=== PATIENT | female | born 1955 | race Caucasian/White ===

== ENCOUNTER 2024-09-17 11:24 | Inpatient (IN) | payer MEDICARE ==
[2024-09-17 11:39] LABS: Glucose,Whole Blood 159 mg/dL (70-110)
--- NOTE | 2024-09-17 11:44 | ED ---
Weakness HPI - General Source: patient, family Mode of arrival: ambulatory Limitations: no limitations <Dewey Álvarez - Last Filed: 09/17/24 11:43> - General Source: patient, family Limitations: no limitations <Darshan Galarza - Last Filed: 09/17/24 14:25> - General Chief complaint: Weakness Stated complaint: weakness Time Seen by Provider: 09/17/24 11:44 - History of Present Illness Initial comments: 68-year-old female presenting with chief complaint of generalized weakness. Patient reports that she recently finished a course of Augmentin for bronchitis. She states that since finishing them she feels worse than she did prior to starting the antibiotics. She admits to nausea and diarrhea as well as shortness of breath. States that she looks pale and is very fatigued. (Dewey Álvarez) Patient is a 68-year-old female present to the emergency department with concerns for being dehydrated. Patient states she finished Augmentin and steroid pack a week ago and has been having symptoms since that time. Decreased appetite. Generalized weakness. Patient has congestion however that has esse ntially resolved. Patient has been having loose stools. Patient did have some diarrhea however more loose stools at this point. Patient has a lot of fatigue. Decreased appetite decreased oral intake. (Darshan Galarza) - Related Data Allergies Allergy/AdvReac Type Severity Reaction Status Date / Time peanut Allergy Rash/Hives Verified 09/17/24 11:40 [id number] Reductase Allergy Rash/Hives Verified 09/17/24 11:40 Inhibitor Sulfa (Sulfonamide Allergy Rash/Hives Verified 09/17/24 11:40 Antibiotics) Review of Systems ROS Other: All systems not noted in ROS Statement are negative. <Dewey Álvarez - Last Filed: 09/17/24 11:43> ROS Other: All systems not noted in ROS Statement are negative. Eyes: Denies: eye pain ENT: Denies: ear pain Respiratory: Reports: as per HPI Cardiovascular: Denies: chest pain Endocrine: Reports: fatigue Gastrointestinal: Reports: as per HPI, nausea. Denies: vomiting Musculoskeletal: Denies: back pain Skin: Denies: rash Neurological: Denies: headache <Darshan Galarza - Last Filed: 09/17/24 14:25> ROS Statement: Those systems with pertinent positive or pertinent negative responses have been documented in the HPI. Past Medical History Past Medical History: Asthma, Diabetes Mellitus, GERD/Reflux, Hyperlipidemia, Hypertension Additional Past Medical History / Comment(s): ibs Additional Past Surgical History / Comment(s): bladder, Smoking Status: Current every day smoker <Dewey Álvarez - Last Filed: 09/17/24 11:43> General Exam Limitations: no limitations <Dewey Álvarez - Last Filed: 09/17/24 11:43> Limitations: no limitations General appearance: alert, in no apparent distress Head exam: Present: normocephalic Eye exam: Present: normal appearance ENT exam: Present: normal oropharynx Neck exam: Present: normal inspection Respiratory exam: Present: normal lung sounds bilaterally. Absent: respiratory distress Cardiovascular Exam: Present: regular rate, normal rhythm GI/Abdominal exam: Present: soft. Absent: tenderness Extremities exam: Present: normal inspection. Absent: pedal edema, calf tenderness Neurological exam: Present: alert Psychiatric exam: Present: normal affect, normal mood Skin exam: Present: normal color <Darshan Galarza - Last Filed: 09/17/24 14:25> - General Exam Comments Initial Comments: Visual Physical Exam Vital signs reviewed General: Well-appearing, nontoxic, no acute distress. Head: Normocephalic, atraumatic Eyes: PERRLA, EOMI ENT: Airway patent Chest: Nonlabored breathing Skin: No visual rash, normal skin tone Neuro: Alert and oriented 3 Musculoskeletal: No gross abnormalities (Dewey Álvarez) Course Vital Signs 09/17/24 11:33 Temperature 97.8 F Pulse Rate 104 H Respiratory 20 Rate Blood Pressure 136/78 O2 Sat by Pulse 99 Oximetry EKG Findings - EKG Results: EKG: interpreted by ERMD (Q wave V1 V2 V3. Inferior Q's. Nonspecific ST-T.), sinus rhythm, normal axis <Darshan Galarza - Last Filed: 09/17/24 14:25> Medical Decision Making <Dewey Álvarez - Last Filed: 09/17/24 11:43> - Lab Data Result diagrams: 09/17/24 13:02 09/17/24 13:02 <Darshan Galarza - Last Filed: 09/17/24 14:25> - Medical Decision Making I performed the quick note portion of this visit, electronically signed Dewey Álvarez PA-C (Dewey Álvarez) Was pt. sent in by a medical professional or institution (, [facility], [facility], urgent care, hospital, or fci...) When possible be specific @ -No Did you speak to anyone other than the patient for history (EMS, parent, family, police, friend...)? What history was obtained from this source @ -Daughter is present helps provide history including previous medications and symptoms and duration Did you review nursing and triage notes (agree or disagree)? Why? @ -I reviewed and agree with nursing and triage notes Were old charts reviewed (outside hosp., previous admission, EMS record, old EKG, old radiological studies, urgent care reports/EKG's, fci records)? Report findings @ -No old charts were reviewed Differential Diagnosis (chest pain, altered mental status, abdominal pain women, abdominal pain men, vaginal bleeding, weakness, fever, dyspnea, syncope, headache, dizziness, GI bleed, back pain, seizure, CVA, palpatations, mental health, musculoskeletal)? @ -Differential Weakness: Hypoglycemia, shock, sepsis, hyponatremia, anemia, infection, NJ, ETOH, adverse medicine reaction, overdose, stroke, this is not meant to be an all-inclusive list. EKG interpreted by me (3pts min.). @ -As above X-rays interpreted by me (1pt min.). @ -Chest x-ray does show left greater than right effusion and mild interstitial changes/cephalization concerning for mild CHF CT interpreted by me (1pt min.). @ -None done U/S interpreted by me (1pt. min.). @ -None done What testing was considered but not performed or refused? (CT, X-rays, U/S, labs)? Why? @ -None What meds were considered but not given or refused? Why? @ -None Did you discuss the management of the patient with other professionals (professionals i.e. [facility]BARA Jimenez, [facility], lab, RT, psych nurse, social science manager, medical parasitologist, teacher, community arts officer, case assistant)? Give summary @ -Case was discussed with Dr. River who will admit his patient. Was smoking cessation discussed for >3mins.? @ -No Was critical care preformed (if so, how long)? @ -31 minutes critical care time Were there social determinants of health that impacted care today? How? (Homelessness, low income, unemployed, alcoholism, drug addiction, transportation, low edu. Level, literacy, decrease access to med. care, alf, rehab)? @ -No Was there de-escalation of care discussed even if they declined (Discuss DNR or withdrawal of care, Hospice)? DNR status @ -No What co-morbidities impacted this encounter? (DM, HTN, Smoking, COPD, CAD, Cancer, CVA, ARF, Chemo, Hep., AIDS, mental health diagnosis, sleep apnea, morbid obesity)? @ -None Was patient admitted / discharged? Hospital course, mention meds given and route, prescriptions, significant lab abnormalities, going to OR and other pertinent info. @ -Patient presents with recent upper respiratory and GI symptoms. Prolonged m ultiple other symptoms. Evaluation with elevated troponin and possible CHF and chest x-ray. There is concern for possible viral myocarditis however NJ has not been ruled out at this time. Patient will be admitted with cardiac consult. Patient and family reevaluated and updated. Admission orders written. Heparin will be started Undiagnosed new problem with uncertain prognosis? @ -No Drug Therapy requiring intensive monitoring for toxicity (Heparin, Nitro, Insulin, Cardizem)? @ -No Were any procedures done? @ -No Diagnosis/symptom? @ -nstemi Acute, or Chronic, or Acute on Chronic? @ -Acute Uncomplicated (without systemic symptoms) or Complicated (systemic symptoms)? @ -Default Side effects of treatment? @ -No Exacerbation, Progression, or Severe Exacerbation? @ -No Poses a threat to life or bodily function? How? (Chest pain, USA, NJ, pneumonia, PE, COPD, DKA, ARF, appy, cholecystitis, CVA, Diverticulitis, Homicidal, Suicidal, threat to staff... and all critical care pts) @ -Threat to cardiac function (Darshan Galarza) - Lab Data Lab Results 09/17/24 09/17/24 09/17/24 Range/Units 11:37 13:02 13:02 WBC 9.2 (3.8-10.6) k/uL RBC 4.32 (3.80-5.40) m/uL Hgb 11.8 (11.4-16.0) gm/dL Hct 37.4 (34.0-46.0) % MCV 86.7 (80.0-100.0) fL MCH 27.4 (25.0-35.0) pg MCHC 31.6 (31.0-37.0) g/dL RDW 14.4 (11.5-15.5) % Plt Count 331 (150-450) k/uL MPV 7.3 Neutrophils % 71 % Lymphocytes % 21 % Monocytes % 5 % Eosinophils % 2 % Basophils % 0 % Neutrophils # 6.6 (1.3-7.7) k/uL Lymphocytes # 2.0 (1.0-4.8) k/uL Monocytes # 0.4 (0-1.0) k/uL Eosinophils # 0.1 (0-0.7) k/uL Basophils # 0.0 (0-0.2) k/uL PT 11.7 (10.0-12.5) sec INR 1.1 (<1.2) APTT 22.9 (22.0-30.0) sec Sodium (137-145) mmol/L Potassium (3.5-5.1) mmol/L Chloride (98-107) mmol/L Carbon Dioxide (22-30) mmol/L Anion Gap mmol/L BUN (7-17) mg/dL Creatinine (0.52-1.04) mg/dL Est GFR (CKD-EPI)AfAm (>60 ml/min/1.73 sqM) Est GFR (CKD-EPI)NonAf (>60 ml/min/1.73 sqM) Glucose (74-99) mg/dL POC Glucose (mg/dL) 159 H (70-110) mg/dL POC Glu [employer] ID [place] Plasma Lactic Acid Alfa (0.7-2.0) mmol/L Calcium (8.4-10.2) mg/dL Magnesium (1.6-2.3) mg/dL Total Bilirubin (0.2-1.3) mg/dL AST (14-36) U/L ALT (4-34) U/L Alkaline Phosphatase (38-126) U/L Troponin I (0.000-0.034) ng/mL Total Protein (6.3-8.2) g/dL Albumin (3.5-5.0) g/dL Influenza Type A (PCR) (Not Detectd) Influenza Type B (PCR) (Not Detectd) RSV (PCR) (Not Detectd) SARS-CoV-2 (PCR) (Not Detectd) 09/17/24 09/17/24 09/17/24 Range/Units 13:02 13:02 13:02 WBC (3.8-10.6) k/uL RBC (3.80-5.40) m/uL Hgb (11.4-16.0) gm/dL Hct (34.0-46.0) % MCV (80.0-100.0) fL MCH (25.0-35.0) pg MCHC (31.0-37.0) g/dL RDW (11.5-15.5) % Plt Count (150-450) k/uL MPV Neutrophils % % Lymphocytes % % Monocytes % % Eosinophils % % Basophils % % Neutrophils # (1.3-7.7) k/uL Lymphocytes # (1.0-4.8) k/uL Monocytes # (0-1.0) k/uL Eosinophils # (0-0.7) k/uL Basophils # (0-0.2) k/uL PT (10.0-12.5) sec INR (<1.2) APTT (22.0-30.0) sec Sodium 138 (137-145) mmol/L Potassium 3.7 (3.5-5.1) mmol/L Chloride 107 (98-107) mmol/L Carbon Dioxide 22 (22-30) mmol/L Anion Gap 9 mmol/L BUN 12 (7-17) mg/dL Creatinine 0.88 (0.52-1.04) mg/dL Est GFR (CKD-EPI)AfAm 78 (>60 ml/min/1.73 sqM) Est GFR (CKD-EPI)NonAf 68 (>60 ml/min/1.73 sqM) Glucose 104 H (74-99) mg/dL POC Glucose (mg/dL) (70-110) mg/dL POC Glu [employer] ID Plasma Lactic Acid Alfa 2.4 H* (0.7-2.0) mmol/L Calcium 9.0 (8.4-10.2) mg/dL Magnesium 1.5 L (1.6-2.3) mg/dL Total Bilirubin 0.6 (0.2-1.3) mg/dL AST 18 (14-36) U/L ALT 25 (4-34) U/L Alkaline Phosphatase 84 (38-126) U/L Troponin I 0.233 H* (0.000-0.034) ng/mL Total Protein 6.0 L (6.3-8.2) g/dL Albumin 3.3 L (3.5-5.0) g/dL Influenza Type A (PCR) (Not Detectd) Influenza Type B (PCR) (Not Detectd) RSV (PCR) (Not Detectd) SARS-CoV-2 (PCR) (Not Detectd) 09/17/24 Range/Units 13:02 WBC (3.8-10.6) k/uL RBC (3.80-5.40) m/uL Hgb (11.4-16.0) gm/dL Hct (34.0-46.0) % MCV (80.0-100.0) fL MCH (25.0-35.0) pg MCHC (31.0-37.0) g/dL RDW (11.5-15.5) % Plt Count (150-450) k/uL MPV Neutrophils % % Lymphocytes % % Monocytes % % Eosinophils % % Basophils % % Neutrophils # (1.3-7.7) k/uL Lymphocytes # (1.0-4.8) k/uL Monocytes # (0-1.0) k/uL Eosinophils # (0-0.7) k/uL Basophils # (0-0.2) k/uL PT (10.0-12.5) sec INR (<1.2) APTT (22.0-30.0) sec Sodium (137-145) mmol/L Potassium (3.5-5.1) mmol/L Chloride (98-107) mmol/L Carbon Dioxide (22-30) mmol/L Anion Gap mmol/L BUN (7-17) mg/dL Creatinine (0.52-1.04) mg/dL Est GFR (CKD-EPI)AfAm (>60 ml/min/1.73 sqM) Est GFR (CKD-EPI)NonAf (>60 ml/min/1.73 sqM) Glucose (74-99) mg/dL POC Glucose (mg/dL) (70-110) mg/dL POC Glu [employer] ID Plasma Lactic Acid Alfa (0.7-2.0) mmol/L Calcium (8.4-10.2) mg/dL Magnesium (1.6-2.3) mg/dL Total Bilirubin (0.2-1.3) mg/dL AST (14-36) U/L ALT (4-34) U/L Alkaline Phosphatase (38-126) U/L Troponin I (0.000-0.034) ng/mL Total Protein (6.3-8.2) g/dL Albumin (3.5-5.0) g/dL Influenza Type A (PCR) Not Detected (Not Detectd) Influenza Type B (PCR) Not Detected (Not Detectd) RSV (PCR) Not Detected (Not Detectd) SARS-CoV-2 (PCR) Not Detected (Not Detectd) Disposition <Dewey Álvarez - Last Filed: 09/17/24 11:43> Is patient prescribed a controlled substance at d/c from ED?: No Time of Disposition: 14:25 <Darshan Galarza - Last Filed: 09/17/24 14:25> Clinical Impression: NSTEMI (non-ST elevated myocardial infarction) Disposition: ADMITTED IP TO THIS HOSP Condition: Serious Referrals: David River MD [Primary Care Provider] - 1-2 days
[2024-09-17 13:11] LABS: Basophils % (A) 0 %; Eosinophils # (A) 0.1 k/uL (0-0.7); Eosinophils % (A) 2 %; HCT 37.4 % (34.0-46.0); HGB 11.8 gm/dL (11.4-16.0); Lymphocytes % (A) 21 %; MCH 27.4 pg (25.0-35.0); MCHC 31.6 g/dL (31.0-37.0); MCV 86.7 fL (80.0-100.0); Mean Platelet Volume 7.3; Monocytes # (A) 0.4 k/uL (0-1.0); Monocytes % (A) 5 %; Neutrophils # (A) 6.6 k/uL (1.3-7.7); Neutrophils % (A) 71 %; Platelet Count 331 k/uL (150-450); RBC 4.32 m/uL (3.80-5.40); RDW 14.4 % (11.5-15.5); WBC 9.2 k/uL (3.8-10.6)
[2024-09-17 13:21] LABS: INR 1.1 (<1.2); Partial Thromboplastin Time 22.9 sec (22.0-30.0); Prothrombin Time 11.7 sec (10.0-12.5)
[2024-09-17 13:26] LABS: ALT 25 U/L (4-34); AST 18 U/L (14-36); African American GFR (CKD) 78 (>60 ml/min/1.73 sqM); Albumin 3.3 g/dL (3.5-5.0); Alkaline Phosphatase 84 U/L (38-126); Anion Gap 9 mmol/L; Blood Urea Nitrogen 12 mg/dL (7-17); Carbon Dioxide 22 mmol/L (22-30); Chloride 107 mmol/L (98-107); Glucose 104 mg/dL (74-99); Magnesium 1.5 mg/dL (1.6-2.3); Non-African American GFR(CKD) 68 (>60 ml/min/1.73 sqM); Potassium 3.7 mmol/L (3.5-5.1); Sodium 138 mmol/L (137-145); Total Bilirubin 0.6 mg/dL (0.2-1.3)
--- NOTE | 2024-09-17 13:34 | XR ---
EXAMINATION TYPE: XR chest 2V DATE OF EXAM: 09/17/2024 1:30 PM COMPARISON: Chest radiographs from 04/30/2012 TECHNIQUE: XR chest 2V Frontal and lateral views of the chest. CLINICAL INDICATION:Female, 68 years old with history of Weakness; FINDINGS: Incorrectly labeled left. Lungs/Pleura: No evidence of focal consolidation or pneumothorax. Blunting of the costophrenic angles is present. Pulmonary vascularity: Pulmonary vascular congestion. Heart/mediastinum: Cardiomediastinal silhouette is prominent in size. Atherosclerotic calcifications are seen in the aorta. Musculoskeletal: No acute osseous pathology. IMPRESSION: Small bilateral pleural effusions with pulmonary vascular congestion. [facility], , 09/17/2024 1:31 PM
[2024-09-17] MEDS: ONDANSETRON 4 MG/2 ML VIAL IVP STA (13:36)
[2024-09-17] MEDS: SODIUM CHLORIDE 0.9% 1,000 ML IV STA (13:36)
[2024-09-17] MEDS: FAMOTIDINE 20 MG/2 ML VIAL IV STA (13:37)
[2024-09-17 13:47] LABS: Influenza A Not Detected (Not Detectd); Influenza B Not Detected (Not Detectd); RSV Not Detected (Not Detectd)
[2024-09-17] MEDS ORDERED: NITROGLYCERIN SL TABS 0.4 MG TAB SUBLINGUAL PRN (14:26)
[2024-09-17 15:23] LABS: Appearance,Urine Cloudy (Clear); Bilirubin,Urine Negative (Negative); Blood,Urine Trace (Negative); Color,Urine Yellow; Glucose,Urine (UA) Negative (Negative); Ketones,Urine Negative (Negative); Leukocyte Esterase,Urine Trace (Negative); Mucus,Urine Many /hpf; Nitrite,Urine Negative (Negative); PH, Urine 5.5 (5.0-8.0); Protein,Urine 1+ (Negative); RBC,Urine 3 /hpf (0-5); Specific Gravity,Urine 1.025 (1.001-1.035); Squamous Epithelial Cell,Urine 5 /hpf (0-4); WBC,Urine 5 /hpf (0-5)
[2024-09-17] MEDS: HEPARIN SODIUM 1,000 UN/ML (10ML VL) IV ONE (16:01)
[2024-09-17] MEDS: HEPARIN SOD,PORK IN 0.45% NACL 25,000 UNIT in 0.45% NACL 1 250ML.BAG IV SCH (16:02)
[2024-09-17] MEDS: ASPIRIN 81 MG PO STA (16:11)
[2024-09-17] MEDS: LOSARTAN 25 MG TAB PO SCH (22:31)
[2024-09-17] MEDS: HEPARIN SODIUM 1,000 UN/ML (10ML VL) IV PRN (23:49)
[2024-09-18 05:55] LABS: Mean Platelet Volume 7.2; Platelet Count 287 k/uL (150-450)
[2024-09-18] MEDS: METOPROLOL TARTRATE 25 MG TAB PO SCH (09:30)
[2024-09-18] MEDS: PANTOPRAZOLE 40 MG TABLET PO SCH (09:30)
[2024-09-18] MEDS: MONTELUKAST 10 MG TAB PO SCH (09:30)
[2024-09-18] MEDS: VERAPAMIL SR 120 MG TABLET.ER PO SCH (09:30)
--- NOTE | 2024-09-18 09:33 | P.CRDCN ---
History of Present Illness History of present illness: HISTORY OF PRESENT ILLNESS: This is a 68-year-old female with a past medical history significant for hypertension, hyperlipidemia with statin intolerance, diabetes, and asthma. Patient does not follow with a project internship. We have been asked to see the patient in consultation for elevated troponins. Patient examined at the bedside in the emergency room. Patient states about 2 weeks ago she had food poisoning and also an upper respiratory infection. She states that she was seen by her doctor and was placed on antibiotics and steroids. She states initially she thought she was getting better however her symptoms started to get worse. She reports that over the past 2 weeks she has been getting more weak. She states that she is too exhausted to do her normal daily activities. She denies having any cough or fever at home. She denies any chest pain or pressure. DIAGNOSTICS: - EKG reveals sinus mechanism with nonspecific ST-T wave changes. - Chest xray small bilateral pleural effusions with pulmonary vascular congestion - Laboratory data: WBC 9.2. Hemoglobin 11.8. Platelet count 287. Sodium 138. Potassium 3.7. BUN 12. Creatinine 0.88. Troponin 0.233. 0.238. 0.223. proBNP 6910. - Current home cardiac medications include losartan 50 mg at night and verapamil 120 mg daily. - No previous echocardiogram, stress test, or cardiac catheterization available in EMR for review REVIEW OF SYSTEMS: At the time of my exam: CONSTITUTIONAL: Denies fever or chills. HEENT: Denies blurred vision, vision changes, or eye pain. Denies hemoptysis CARDIOVASCULAR: Denies chest pain. Denies orthopnea. Denies PND. Denies palpitations RESPIRATORY: Denies shortness of breath. GASTROINTESTINAL: Denies abdominal pain. Denies nausea or vomiting. HEMATOLOGIC: Denies bleeding disorders. GENITOURINARY: Denies any blood in urine. SKIN: Denies pruitis. Denies rash. PHYSICAL EXAM: VITAL SIGNS: Reviewed. GENERAL: Well-developed in no acute distress. HEENT: Head is normocephalic. Pupils are equal, round. Sclerae anicteric. Mucous membranes of the mouth are moist. Neck supple. No JVD or thyromegaly LUNGS: Respirations even and unlabored. Lungs essentially clear to auscultation bilaterally. HEART: Regular rate and rhythm. S1 and S2 heard. ABDOMEN: Soft. Nondistended. Nontender. EXTREMITIES: Normal range of motion. No clubbing or cyanosis. Peripheral pulses intact. No lower extremity edema NEUROLOGIC: Awake and alert. Oriented x 3. ASSESSMENT: Generalized weakness Recent diagnosis of upper respiratory infection, treated with antibiotics and steroids Elevated troponins, likely type II [place], suspect secondary to above, no evidence of acute coronary syndrome Hypertension Hyperlipidemia with statin intolerance Diabetes History of asthma PLAN: Obtain 2D echo to assess cardiac structure and function Add aspirin 81 mg daily Add metoprolol to tartrate 25 mg twice a day Continue home medications including losartan and verapamil Patient with allergy to statins Continue IV heparin for 24 to 48 hours No plans for invasive cardiac procedures at this time Further recommendations pending patient course Nurse practitioner note has been reviewed by physician. Signing provider agrees with the documented findings, assessment, and plan of care documented by [employer] OPERATOR as a scribe. Past Medical History Past Medical History: Asthma, Diabetes Mellitus, GERD/Reflux, Hyperlipidemia, Hypertension Additional Past Medical History / Comment(s): ibs Additional Past Surgical History / Comment(s): bladder, Smoking Status: Current every day smoker Medications and Allergies Home Medications Medication Instructions Recorded Confirmed Type Albuterol Inhaler [Ventolin Hfa 2 puff INHALATION RT-QID PRN 09/17/24 09/17/24 History Inhaler] HYDROcodone/APAP 10-325MG [[place] 0.5 - 1 tab PO DAILY PRN 09/17/24 09/17/24 History 10-325] Losartan [Cozaar] 50 mg PO HS 09/17/24 09/17/24 History Montelukast [Singulair] 10 mg PO DAILY 09/17/24 09/17/24 History Omeprazole [PriLOSEC] 10 mg PO DAILY 09/17/24 09/17/24 History Verapamil HCl [Verapamil Sr] 120 mg PO DAILY 09/17/24 09/17/24 History metFORMIN HCL 500 mg PO DAILY 09/17/24 09/17/24 History Allergies Allergy/AdvReac Type Severity Reaction Status Date / Time peanut Allergy Rash/Hives Verified 09/17/24 14:47 [id number] Reductase Allergy Rash/Hives Verified 09/17/24 14:47 Inhibitor Sulfa (Sulfonamide Allergy Rash/Hives Verified 09/17/24 14:47 Antibiotics) egg beaters Allergy Vomiting Uncoded 09/18/24 07:49 Physical Exam Vitals: Vital Signs Temp Pulse Resp BP Pulse Ox 09/18/24 07:34 98.6 F 106 H 16 124/81 99 09/18/24 05:16 103 H 18 123/82 09/18/24 03:31 103 H 16 112/47 96 09/18/24 01:12 102 H 16 121/75 94 L 09/17/24 22:00 98 22 105/60 96 09/17/24 21:14 98.5 F 98 20 124/70 95 09/17/24 17:43 98.8 F 96 20 112/72 95 09/17/24 14:30 97 20 123/76 95 09/17/24 11:33 97.8 F 104 H 20 136/78 99 Intake and Output 09/17/24 09/18/24 09/18/24 22:59 06:59 14:59 Intake Total 72.019 Balance 72.019 Intake: Intake, IV Titration 72.019 Amount Heparin Sod,Pork in 0.45% 72.019 NaCl 25,000 unit In 0.45 % NaCl 1 250ml.bag @ 12 UNITS/KG/HR 9.253 mls/hr IV .Q24H [facility] Rx#: [id number] Results 09/18/24 05:31 09/17/24 13:02 Cardiac Enzymes 09/17/24 09/17/24 09/17/24 Range/Units 13:02 13:02 16:25 AST 18 (14-36) U/L Troponin I 0.233 H* 0.238 H* (0.000-0.034) ng/mL 09/17/24 Range/Units 22:06 AST (14-36) U/L Troponin I 0.223 H* (0.000-0.034) ng/mL Coagulation 09/17/24 09/17/24 09/18/24 Range/Units 13:02 22:06 05:31 PT 11.7 (10.0-12.5) sec APTT 22.9 33.8 H 40.1 H (22.0-30.0) sec CBC 09/17/24 09/18/24 Range/Units 13:02 05:31 WBC 9.2 (3.8-10.6) k/uL RBC 4.32 (3.80-5.40) m/uL Hgb 11.8 (11.4-16.0) gm/dL Hct 37.4 (34.0-46.0) % Plt Count 331 287 (150-450) k/uL Comprehensive Metabolic Panel 09/17/24 Range/Units 13:02 Sodium 138 (137-145) mmol/L Potassium 3.7 (3.5-5.1) mmol/L Chloride 107 (98-107) mmol/L Carbon Dioxide 22 (22-30) mmol/L BUN 12 (7-17) mg/dL Creatinine 0.88 (0.52-1.04) mg/dL Glucose 104 H (74-99) mg/dL Calcium 9.0 (8.4-10.2) mg/dL AST 18 (14-36) U/L ALT 25 (4-34) U/L Alkaline Phosphatase 84 (38-126) U/L Total Protein 6.0 L (6.3-8.2) g/dL Albumin 3.3 L (3.5-5.0) g/dL Current Medications Generic Name Dose Route Start Last Admin Trade Name Freq PRN Reason Stop Dose Admin Albuterol Sulfate 2 puff 09/17/24 15:27 Albuterol Hfa Inhaler INHALATION RT-QID PRN Shortness Of Breath Aspirin 325 mg 09/18/24 09:00 Aspirin 325 Mg Tab PO DAILY [facility] Heparin Sodium (Porcine) 0 unit 09/17/24 23:40 09/17/24 23:49 Heparin Sodium 1,000 Un/Ml (10ml Vl) IV 1,927.77 unit PER PROTOCOL PRN Administration Low PTT Protocol Heparin Sodium/Sodium Chloride 250 mls @ 9.253 mls/hr 09/17/24 14:30 09/17/24 23:49 25,000 unit/ Sodium Chloride IV 14 units/kg/hr .Q24H NOE 10.796 mls/hr Titration Protocol 12 UNITS/KG/HR Losartan Potassium 50 mg 09/17/24 21:00 09/17/24 22:31 Losartan 25 Mg Tab PO Not Given HS NOE Montelukast Sodium 10 mg 09/18/24 09:00 Montelukast 10 Mg Tab PO DAILY NOE Nitroglycerin 0.4 mg 09/17/24 14:26 Nitroglycerin Sl Tabs 0.4 Mg Tab SUBLINGUAL Q5M PRN Chest Pain Pantoprazole Sodium 40 mg 09/18/24 09:00 Pantoprazole 40 Mg Tablet PO DAILY NOE Verapamil HCl 120 mg 09/18/24 09:00 Verapamil Sr 120 Mg Tablet.Er PO DAILY NOE Intake and Output 09/17/24 09/18/24 09/18/24 22:59 06:59 14:59 Intake Total 72.019 Balance 72.019 Intake: Intake, IV Titration 72.019 Amount Heparin Sod,Pork in 0.45% 72.019 NaCl 25,000 unit In 0.45 % NaCl 1 250ml.bag @ 12 UNITS/KG/HR 9.253 mls/hr IV .Q24H NOE Rx#: [id number] 09/18/24 05:31 09/17/24 13:02
[2024-09-18 09:35] LABS: Chol/HDL Ratio 5.89 Ratio; LDL Cholesterol,Calculated 125.8 mg/dL (0.0-131.0)
[2024-09-18] MEDS: ASPIRIN 325 MG TAB PO SCH (10:20)
[2024-09-18] MEDS: ASPIRIN 81 MG PO SCH (10:49)
--- NOTE | 2024-09-18 20:44 | HP ---
HISTORY AND PHYSICAL CHIEF COMPLAINT: Chest discomfort. HISTORY OF PRESENT ILLNESS: This is a first known admission for this 68-year-old female. She described thinking she had food poisoning. She felt very weak and then, she thought she had "cold." She did develop some chest discomfort and vomiting, came to the emergency room. There, she had elevated troponin and ST-segment and T-wave changes in leads III and aVF. REVIEW OF SYSTEMS: She denied radiation of the discomfort, diaphoresis, etc. She had no vomiting. PAST MEDICAL HISTORY: Otherwise, unremarkable. FAMILY HISTORY: Otherwise, unremarkable. PERSONAL AND SOCIAL HISTORY: Otherwise, unremarkable. PHYSICAL EXAMINATION: VITAL SIGNS: Blood pressure is 110/75 with a pulse of 78, respirations of 33. GENERAL: She appeared to be pale and in no acute distress. HEAD, EARS, EYES, NOSE, MOUTH, AND THROAT: Normal. CHEST: Clear. CARDIAC EXAM: Demonstrated a loud grade 3 or 4 systolic murmur. ABDOMEN: Soft and nontender. EXTREMITIES: Normal. NEUROLOGIC: She is intact. ASSESSMENT: She is admitted to the hospital with the diagnosis of probable [id number] myocardial infarction. PLAN: 1. Bedrest. 2. IV fluids. 3. Heparin. 4. Serial EKGs and enzymes. 5. Echocardiogram. 6. Cardiology referral. MMODL / IJN: [id number] /
--- NOTE | 2024-09-18 21:59 | PN ---
PROGRESS NOTE DATE OF SERVICE: 09/18/2024 CHIEF COMPLAINT: Acute coronary syndrome. HISTORY OF PRESENT ILLNESS: This lady is doing fairly well. She is not having any pain, but she is quite lightheaded. PHYSICAL EXAMINATION: VITAL SIGNS: Blood pressure is 99. GENERAL: She is pale. CHEST: Clear. CARDIAC: Same. IMPRESSION: 1. Possible type 2 ST-elevation myocardial infarction. 2. Hypotension. PLAN: She is undergoing an echocardiogram tomorrow and may require catheterization subsequently. MMODL / IJN: [id number] /
[2024-09-19 05:02] LABS: Mean Platelet Volume 7.3; Platelet Count 291 k/uL (150-450)
--- NOTE | 2024-09-19 11:08 | P.PN ---
Subjective HISTORY OF PRESENT ILLNESS: This is a 68-year-old female with a past medical history significant for hypertension, hyperlipidemia with statin intolerance, diabetes, and asthma. Patient does not follow with a material control clerk. We have been asked to see the patient in consultation for elevated troponins. Patient examined at the bedside in the emergency room. Patient states about 2 weeks ago she had food poisoning and also an upper respiratory infection. She states that she was seen by her doctor and was placed on antibiotics and steroids. She states initially she thought she was getting better however her symptoms started to get worse. She reports that over the past 2 weeks she has been getting more weak. She states that she is too exhausted to do her normal daily activities. She denies having any cough or fever at home. She denies any chest pain or pressure. DIAGNOSTICS: - EKG reveals sinus mechanism with nonspecific ST-T wave changes. - Chest xray small bilateral pleural effusions with pulmonary vascular congestion - Laboratory data: WBC 9.2. Hemoglobin 11.8. Platelet count 287. Sodium 138. Potassium 3.7. BUN 12. Creatinine 0.88. Troponin 0.233. 0.238. 0.223. proBNP 6910. - Current home cardiac medications include losartan 50 mg at night and verapamil 120 mg daily. - No previous echocardiogram, stress test, or cardiac catheterization available in EMR for review 09/19/2024 Patient examined this morning the bedside. Patient currently denies any chest pain or pressure. She denies any shortness of breath. According to EMR, patient refused all her morning medications. 2D echo remains pending. Vital signs are stable. She remains on IV heparin. PHYSICAL EXAM: VITAL SIGNS: Reviewed. GENERAL: Well-developed in no acute distress. HEENT: Head is normocephalic. Pupils are equal, round. Sclerae anicteric. Mucous membranes of the mouth are moist. Neck supple. No JVD or thyromegaly LUNGS: Respirations even and unlabored. Lungs essentially clear to auscultation bilaterally. HEART: Regular rate and rhythm. S1 and S2 heard. ABDOMEN: Soft. Nondistended. Nontender. EXTREMITIES: Normal range of motion. No clubbing or cyanosis. Peripheral pulses intact. No lower extremity edema NEUROLOGIC: Awake and alert. Oriented x 3. ASSESSMENT: Generalized weakness Recent diagnosis of upper respiratory infection, treated with antibiotics and steroids Elevated troponins, likely type II [place], suspect secondary to above, no evidence of acute coronary syndrome Hypertension Hyperlipidemia with statin intolerance Diabetes History of asthma PLAN: 2D echo remains pending. Await results. Continue IV heparin Patient with allergy to statins Per EMR, patient refused all her morning medications including aspirin, losartan, metoprolol, and verapamil No plans for invasive cardiac procedures at this time Further recommendations pending patient course Nurse practitioner note has been reviewed by physician. Signing provider agrees with the documented findings, assessment, and plan of care documented by ACCOUNTS RECEIVABLE SPECIALIST as a scribe. Objective - Vital Signs Vital signs: Vital Signs Temp 98.5 F 09/18/24 18:07 Pulse 111 H 09/19/24 08:00 Resp 22 09/19/24 08:00 BP 128/78 09/19/24 08:00 Pulse Ox 94 L 09/19/24 08:00 FiO2 Intake & Output 09/18/24 09/19/24 09/19/24 18:59 06:59 18:59 Intake Total 149.525 93.563 Balance 149.525 93.563 Intake: Intake, IV Titration 149.525 93.563 Amount Heparin Sod,Pork in 0.45% 149.525 93.563 NaCl 25,000 unit In 0.45 % NaCl 1 250ml.bag @ 12 UNITS/KG/HR 9.253 mls/hr IV .Q24H [facility] Rx#: [id number] Other: # Voids 1 - Labs CBC & Chem 7: 09/19/24 04:48 09/17/24 13:02 Labs: Abnormal Lab Results - Last 24 Hours (Table) 09/18/24 09/18/24 09/19/24 Range/Units 11:05 20:32 04:48 APTT 37.7 H 47.1 H 44.6 H (22.0-30.0) sec
[2024-09-19] MEDS: ALBUTEROL HFA INHALER INHALATION PRN (17:20)
[2024-09-19 18:52] LABS: Glucose,Whole Blood 112 mg/dL (70-110)
[2024-09-19 20:09] LABS: Glucose,Whole Blood 100 mg/dL (70-110)
--- NOTE | 2024-09-20 01:08 | PN ---
PROGRESS NOTE DATE OF SERVICE: 09/19/2024 CHIEF COMPLAINT: Chest pain. HISTORY OF PRESENT ILLNESS: This lady is doing a little bit better. She is not having any further chest pain. Her x-ray apparently shows small bilateral effusions and her BNP is 6910. PHYSICAL EXAMINATION: CHEST: She does have some decreased breath sounds at the bases and scattered rales. CARDIAC EXAM: Normal. IMPRESSION: 1. Acute coronary syndrome. 2. Congestive heart failure. 3. Bilateral pleural effusions. PLAN: Await for further guidance from Cardiology. She may still be a candidate for cardiac cath. MMODL / IJN: [id number] /
[2024-09-20 06:02] LABS: Glucose,Whole Blood 113 mg/dL (70-110)
[2024-09-20 08:09] LABS: Mean Platelet Volume 7.7; Platelet Count 307 k/uL (150-450)
[2024-09-20] MEDS ORDERED: Magnesium Replacement Protocol 1 EACH MISC MISCELLANE PRN (09:43)
[2024-09-20] MEDS: MONTELUKAST 10 MG TAB PO SCH (09:45)
[2024-09-20] MEDS: VERAPAMIL SR 120 MG TABLET.ER PO SCH (09:52)
[2024-09-20] MEDS: MAGNESIUM SULFATE-D5W PMX 1 GM in DEXTROSE/WATER 1 100ML.BAG IVPB SCH (09:54)
--- NOTE | 2024-09-20 10:12 | CA ---
Transthoracic Echo Report Name: Ludy Blanc Age: 68 Gender: F : 1955 Exam Date: 09/20/2024 08:53 Exam Location: [place] [facility] Ht (in): 66 Wt (lb): 170 Ordering Physician: Darshan Galarza DO Attending/Referring Phys: Tar Heat Exchanger Cleaner Leatha Obrien RDCS Procedure CPT: Indications: nstemi v myocarditis Cardiac Hx: Technical Quality: Fair Contrast 1: Total Dose (mL): Contrast 2: Total Dose (mL): MEASUREMENTS (Male / Female) Normal Values 2D ECHO LV Diastolic Diameter PLAX 5.2 cm 4.2 - 5.9 / 3.9 - 5.3 cm LV Systolic Diameter PLAX 3.2 cm IVS Diastolic Thickness 1.1 cm 0.6 - 1.0 / 0.6 - 0.9 cm LVPW Diastolic Thickness 1.0 cm 0.6 - 1.0 / 0.6 - 0.9 cm LV Relative Wall Thickness 0.4 RV Internal Dim ED PLAX 1.4 cm LA Systolic Diameter LX 3.8 cm 3.0 - 4.0 / 2.7 - 3.8 cm LV Diastolic Volume MOD BP 74.3 cm??? 67 - 155 / 56 - 104 cm??? LV Systolic Volume MOD BP 35.7 cm??? 22 - 58 / 19 - 49 cm??? LV Ejection Fraction MOD BP 51.9 % >= 55 % LV Cardiac Index MOD BP 2197.4 cm???/min???m??? LV Diastolic Volume MOD 4C 78.7 cm??? LV Systolic Volume MOD 4C 26.1 cm??? LV Ejection Fraction MOD 4C 66.8 % LV Cardiac Index MOD 4C 2997.2 cm???/min???m??? LV Diastolic Length 4C 7.7 cm LV Systolic Length 4C 5.9 cm LV Diastolic Volume MOD 2C 61.3 cm??? LV Systolic Volume MOD 2C 47.7 cm??? LV Ejection Fraction MOD 2C 22.1 % LV Cardiac Index MOD 2C 772.9 cm???/min???m??? LV Diastolic Length 2C 6.7 cm LV Systolic Length 2C 6.2 cm M-MODE Aortic Root Diameter MM 3.4 cm LA Systolic Diameter MM 3.8 cm LA Ao Ratio MM 1.1 AV Cusp Separation MM 2.0 cm DOPPLER Mitral E Point Velocity 170.3 cm/s Mitral A Point Velocity 160.7 cm/s Mitral E to A Ratio 1.1 MV Deceleration Time 264.1 ms MV E' Velocity 6.1 cm/s Mitral E to MV E' Ratio 27.9 TR Peak Velocity 333.6 cm/s TR Peak Gradient 44.5 mmHg FINDINGS Left Ventricle Left ventricular ejection fraction is estimated at 45-50%. Mildly increased septal wall thickness. Mildly increased posterior wall thickness. Mildly decreased left ventricular ejection fraction. Thinned/scarred septum. Aneurysmal inferior wall at the base. Ventricular septal defect. With flow across best seen in the angled four-chamber view Right Ventricle Normal right ventricular size and function. Moderate pulmonary hypertension. Right Atrium Mild right atrial dilatation. Left Atrium Mild left atrial dilatation. Mitral Valve Structurally normal mitral valve. Mild mitral regurgitation. No mitral stenosis. Aortic Valve Trileaflet aortic valve. Trace aortic regurgitation. No aortic stenosis. Tricuspid Valve Structurally normal tricuspid valve. Mild tricuspid regurgitation. No tricuspid stenosis. Pulmonic Valve Structurally normal pulmonic valve. Trace pulmonic regurgitation. Pericardium Right pleural effusion. Left pleural effusion. Small pericardial effusion. Aorta Normal size aortic root and proximal ascending aorta. CONCLUSIONS LV size and function is normal inferobasal akinesia to dyskinesia with ventricular septal defect. Moderate pulmonary hypertension. Mild mitral and tricuspid regurgitation small pericardial effusion and bilateral pleural effusions. Findings discussed with Dr. Delgado Previewed by: Dr. Cadence Mary MD (Electronically Signed) Final Date: 20 September 2024 10:11
[2024-09-20] MEDS: ATORVASTATIN 20 MG TAB PO SCH (11:23)
--- NOTE | 2024-09-20 11:24 | P.PN ---
Progress Note - Text Patient evaluated this morning. 2D echo was performed since she had been complaining of shortness of breath for the last several weeks, had been treated for a bronchitis with antibiotics and steroids by her primary care physician Dr. Bryan. Twelve-lead EKG showed Q waves in the inferior leads with a subtle ST elevation coved consistent with an old CA Her troponins are 0.2, 0.2 and 0.2, flat trend She was initially seen by Dr. Donovan. I evaluated her yesterday. She had a cardiac murmur and a 2D echo was ordered Her 2D echo was reviewed with Dr. 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 Her blood pressure was low and her daughter asked her mother to to be taken to the hospital but the patient refused Patient has been refusing medications. She has been refusing aspirin and statins. She was on IV heparin which is being discontinued today Plan Initiate aspirin statins beta-blockers per daughter. I discussed this with the daughter in detail. I explained to her that she has had an old inferior wall CA that is certainly not new. The inferior basal wall appears aneurysmal consis tent with an old CA. She needs to be transferred to a tertiary care center for further management. While this is neither emergent nor urgent, this should be addressed in an expeditious manner. The daughter is in agreement. I called Dr. Oseguera's office multiple times. I could not get through via the direct line and kept getting cut off I called the regular line. Finally my nurse practitioner was able to speak to the office coordinator receptionist but she was put on hold I called again and insisted that I speak to Dr. Hodgson. I stated that this was an urgent matter and I needed to speak to Dr. Bryan regarding his patient who is in the hospital. The office coordinator receptionist took notes transferred a message and then said she was transferred me to Dr. Wynn's office and once again, I was given a voicemail to leave a message on. I have left 2 voice messages with his office Recommend transfer to a tertiary care center for further evaluation and management of coronary artery disease, old inferior wall CA with VSD I spoke to the medical records technician, Dr. Hsu about this too and recommended that the patient be transferred by the primary team to a tertiary care center
[2024-09-20 11:37] LABS: Glucose,Whole Blood 145 mg/dL (70-110)
--- NOTE | 2024-09-20 12:13 | P.PN ---
Subjective HISTORY OF PRESENT ILLNESS: This is a 68-year-old female with a past medical history significant for hypertension, hyperlipidemia with statin intolerance, diabetes, and asthma. Patient does not follow with a physiological chemist. We have been asked to see the patient in consultation for elevated troponins. Patient examined at the bedside in the emergency room. Patient states about 2 weeks ago she had food poisoning and also an upper respiratory infection. She states that she was seen by her doctor and was placed on antibiotics and steroids. She states initially she thought she was getting better however her symptoms started to get worse. She reports that over the past 2 weeks she has been getting more weak. She states that she is too exhausted to do her normal daily activities. She denies having any cough or fever at home. She denies any chest pain or pressure. DIAGNOSTICS: - EKG reveals sinus mechanism with nonspecific ST-T wave changes. - Chest xray small bilateral pleural effusions with pulmonary vascular congestion - Laboratory data: WBC 9.2. Hemoglobin 11.8. Platelet count 287. Sodium 138. Potassium 3.7. BUN 12. Creatinine 0.88. Troponin 0.233. 0.238. 0.223. proBNP 6910. - Current home cardiac medications include losartan 50 mg at night and verapamil 120 mg daily. - No previous echocardiogram, stress test, or cardiac catheterization available in EMR for review 09/19/2024 Patient examined this morning the bedside. Patient currently denies any chest pain or pressure. She denies any shortness of breath. According to EMR, patient refused all her morning medications. 2D echo remains pending. Vital signs are stable. She remains on IV heparin. 09/20/2024 Patient examined this morning at the bedside. There is no family present. Patient currently denies chest pain or pressure. She denies shortness of breath. Patient continues to refuse all of her oral medications. Explained the importance of these medications to patient. However she continues to refuse them. Patient is adamant that she was given IV metoprolol yesterday through her IV. Explained to patient this was ordered orally yet she refused it. Explained that IV metoprolol was not ordered and patient did not receive it. Patient becoming agitated and stated that she knows she was given IV metoprolol. Tried to reassure patient that IV metoprolol was not ordered or given. However, unable unwilling to listen and continues to accuse staff and providers of giving her medications through her IV. PHYSICAL EXAM: VITAL SIGNS: Reviewed. GENERAL: Well-developed in no acute distress. HEENT: Head is normocephalic. Pupils are equal, round. Sclerae anicteric. Mucous membranes of the mouth are moist. Neck supple. No JVD or thyromegaly LUNGS: Respirations even and unlabored. Lungs essentially clear to auscultation bilaterally. HEART: Regular rate and rhythm. S1 and S2 heard. ABDOMEN: Soft. Nondistended. Nontender. EXTREMITIES: Normal range of motion. No clubbing or cyanosis. Peripheral pulses intact. No lower extremity edema NEUROLOGIC: Awake and alert. Oriented x 3. ASSESSMENT: Generalized weakness Recent diagnosis of upper respiratory infection, treated with antibiotics and steroids Elevated troponins, likely type II [place], suspect secondary to above, no evidence of acute coronary syndrome Hypertension Hyperlipidemia with statin intolerance Diabetes History of asthma PLAN: -2D echo remains pending. Await results. -Discontinue IV Heparin. -Patient with reported allergy to statins -Patient continues to refuse all medications including aspirin, losartan, metoprolol, and verapamil -Patient is adamant that she was given IV metoprolol yesterday through her IV. Explained to patient this was ordered orally yet she refused it. Explained that IV metoprolol was not ordered and patient did not receive it. Patient becoming agitated and stated that she knows she was given IV metoprolol. Tried to reassure patient that IV metoprolol was not ordered or given. However, unable unwilling to listen and continues to accuse staff and providers of giving her medications through her IV. -No plans for invasive cardiac procedures at this time -Further recommendations pending patient course Nurse practitioner note has been reviewed by physician. Signing provider agrees with the documented findings, assessment, and plan of care documented by WEBMETHODS CONSULTANT as a scribe. Objective - Vital Signs Vital signs: Vital Signs Temp 98.0 F 09/20/24 11:21 Pulse 93 09/20/24 11:21 Resp 20 09/20/24 11:21 BP 95/65 09/20/24 11:21 Pulse Ox 97 09/20/24 11:21 FiO2 Intake & Output 09/19/24 09/20/24 09/20/24 18:59 06:59 18:59 Intake Total 156.437 120 118 Balance 156.437 120 118 Weight 77.111 kg 85 kg Intake: Intake, IV Titration 156.437 Amount Heparin Sod,Pork in 0.45% 156.437 NaCl 25,000 unit In 0.45 % NaCl 1 250ml.bag @ 12 UNITS/KG/HR 9.253 mls/hr IV .Q24H [facility] Rx#: [id number] Oral 120 118 Other: Voiding Method Toilet # Voids 1 # Bowel Movements 1 - Labs CBC & Chem 7: 09/20/24 06:27 09/17/24 13:02 Labs: Abnormal Lab Results - Last 24 Hours (Table) 09/19/24 09/20/24 09/20/24 Range/Units 18:50 06:00 06:27 APTT 36.5 H (22.0-30.0) sec POC Glucose (mg/dL) 112 H 113 H (70-110) mg/dL Magnesium (1.6-2.3) mg/dL 09/20/24 09/20/24 Range/Units 06:27 11:35 APTT (22.0-30.0) sec POC Glucose (mg/dL) 145 H (70-110) mg/dL Magnesium 1.5 L (1.6-2.3) mg/dL
[2024-09-20] MEDS: HEPARIN SODIUM,PORCINE 5,000 UNIT/ML 1 ML VIAL SQ SCH (15:13)
[2024-09-20 15:29] VITALS: BMI 30.2
[2024-09-20] MEDS: ALPRAZolam 0.25 MG TAB PO PRN (15:48)
[2024-09-20 16:37] LABS: Glucose,Whole Blood 119 mg/dL (70-110)
[2024-09-20 19:56] LABS: Glucose,Whole Blood 135 mg/dL (70-110)
[2024-09-20] MEDS: LOSARTAN 25 MG TAB PO SCH (19:59)
--- NOTE | 2024-09-20 21:52 | PN ---
PROGRESS NOTE DATE OF SERVICE: 09/20/2024 CHIEF COMPLAINT: Myocardial infarction. HISTORY OF PRESENT ILLNESS: This lady is doing fairly well, but she still feels weak. She has created some issues with the staff, refusing to take medications and being noncompliant with Cardiology. She had an echocardiogram today with suggests that she may have a VSD. Cardiology requests that she will be transferred out of town. Dlae French will be contacted. REVIEW OF SYSTEMS: She is otherwise stable. PHYSICAL EXAMINATION: CHEST: Clear. CARDIAC: Reveals heart murmur. ABDOMEN: Soft, nontender. She is pale. IMPRESSION: 1. Dfe-SF-ffwggueha myocardial infarction. 2. Congestive heart failure. 3. Ventricular septal defect. PLAN: Contact Dale Manolo about transferring her to the institution. MMODL / IJN: [id number] /
[2024-09-21 06:02] LABS: Glucose,Whole Blood 123 mg/dL (70-110)
[2024-09-21 07:54] VITALS: BP 130/60; PULSE 102; RESP 19; TEMP 98
--- NOTE | 2024-09-21 13:43 | DS ---
DISCHARGE SUMMARY CHIEF COMPLAINT: Chest pain. HISTORY OF PRESENT ILLNESS AND PHYSICAL EXAMINATION: Details of this lady's history and physical can be found in the initial workup. COURSE IN THE HOSPITAL: After admission, she was placed on bedrest, started on intravenous fluids and found to have elevated cardiac enzymes consistent with a myocardial infarction. She was seen by Cardiology. She had a fairly loud murmur and the echocardiogram revealed a ventriculoseptal defect. Cardiology was talking to her about management and she became quite belligerent and refused their services. After that, they requested that she be sent to a tertiary hospital and this is arranged. She was set up to go to [facility] and transferred there on the . FINAL DIAGNOSES: 1. Acute non ST elevation myocardial infarction. 2. Ventriculoseptal defect. 3. Atherosclerotic cardiovascular disease. OPERATIONS: None. CONSULTATIONS: Cardiology. She is improved. SANCHEZ / JACKI: [id number] /
--- NOTE | 2024-09-22 21:50 | CDI ---
Documentation Clarification Form Date: 09/22/2024 09:41:36 PM From: Briseida Poe Phone: Admit Date: 09/17/2024 02:26:00 PM Patient Name: Ludy Blanc Visit Number: [id number] Discharge Date: 09/21/2024 10:51:00 AM ATTENTION: The Clinical Documentation Specialists (CDI) and [facility] Coding Staff appreciate your assistance in clarifying documentation. Please respond to the clarification below the line at the bottom and electronically sign. The CDI & [facility] Coding staff will review the response and follow-up if needed. Please note: Queries are made part of the Legal Health Record. If you have any questions, please contact the author of this message via ITS. Doctor/Provider: Aguila Delgado Your patient has the documented diagnosis of unspecified CHF per Progress Note 09/19 & 09/20. Additional information regarding the type & acuity of CHF is requested. History/Risk Factors: 68yo F, VSP, CHF, NSTEMI II, HTN, NIDDMII, asthma, HLD, Hx [place], smoker Clinical Indicators: VS/Pulse OX: 99 BNP: 6910 Echo: LV size and fx is normal inferobasalakinesiatodyskinesiawith ventricular septal defect. ModeratePHTN. MildMR & TRsmallpericardial effusionandbilateral pleural effusions. Chest X Ray: Smallbilateral pleural effusionswith pulmonary vascularcongestion. Treatment: ContactDale French about transferring her to the institution. In your professional opinion, can you please clarify the acuity and type of CHF if known? Patient has been symptomatic for the last 3 to 4 weeks Please contact patient's primary care physician who has been treating her symptoms for the last 3 to 4 weeks, prior to this admission [ xx] Unable to determine (Template Last Revised: August 2020) MTDD
--- NOTE | 2024-09-22 21:59 | CDI ---
Documentation Clarification Form Date: 09/22/2024 09:51:48 PM From: Briseida Poe Phone: Admit Date: 09/17/2024 02:26:00 PM Patient Name: Ludy Blanc Visit Number: [id number] Discharge Date: 09/21/2024 10:51:00 AM ATTENTION: The Clinical Documentation Specialists (CDI) and [facility] Coding Staff appreciate your assistance in clarifying documentation. Please respond to the clarification below the line at the bottom and electronically sign. The CDI & [facility] Coding staff will review the response and follow-up if needed. Please note: Queries are made part of the Legal Health Record. If you have any questions, please contact the author of this message via ITS. Doctor/Provider: Aguila Delgado Conflicting Myocardial infarction types (ND) are documented. Additional clarification regarding the type of ND is requested. Acute non ST elevation myocardial infarction ED Note, H&P, Progress Note 09/20 DCS Type II Non ST elevation myocardial infarction Progress Note 09/18 History/Risk Factors: 68yo F, VSP, CHF, NSTEMI II, HTN, NIDDMII, asthma, smoker Clinical Indicators: Troponin: 09/17 0.233 09/18 0.238 EKG Results: interpreted by ERMD (Q wave V1 V2 V3.Inferior Q's. Nonspecific ST- T. ), sinusrhythm, normal axis Treatment: Cardiology was talking to her about management and she became quite belligerent and refused their services. After that, they requested that she be sent to a tertiary hospital and this is arranged. She was set up to go to [facility] and transferred there on the . Please contact patient's primary care physician. PCP has been treating her symptoms for the last 3 to 4 weeks prior to this admission [ x ] Unable to determine (Template Last Revised: September 2020) MTDD
--- NOTE | 2024-09-27 18:50 | CDI ---
Documentation Clarification Form Date: 09/27/2024 06:46:24 PM From: Briseida Poe Phone: Admit Date: 09/17/2024 02:26:00 PM Patient Name: Ludy Blanc Visit Number: [id number] Discharge Date: 09/21/2024 10:51:00 AM ATTENTION: The Clinical Documentation Specialists (CDI) and [facility] Coding Staff appreciate your assistance in clarifying documentation. Please respond to the clarification below the line at the bottom and electronically sign. The CDI & [facility] Coding staff will review the response and follow-up if needed. Please note: Queries are made part of the Legal Health Record. If you have any questions, please contact the author of this message via ITS. Doctor/Provider: David River Your patient has the documented diagnosis of unspecifiedCHFper Progress Note 09/19 09/20.Additional information regarding the type acuity ofCHFis requested. History/Risk Factors: 68yo F, VSP,CHF,NSTEMIII,HTN, NIDDMII,asthma,HLD,Hx [place],smoker Clinical Indicators: VS/Pulse OX: 99 BNP: 6910 Echo: LV size andfxis normalinferobasalakinesiatodyskinesiawith ventricular septal defect. ModeratePHTN. MildMR TRsmallpericardial effusionandbilateral pleural effusions. Chest X Ray: Smallbilateral pleural effusionswith pulmonary vascularcongestion. Treatment:ContactDale Friedd about transferring her to the institution. In your professional opinion, can you please clarify the acuity and type ofCHF if known? [ ] Acute Systolic Heart Failure (reduced EF) [ ] Chronic Systolic Heart Failure (reduced EF) [ ] Acute on Chronic Systolic Heart Failure (reduced EF) [ ] Acute Diastolic Heart Failure (preserved EF) [ ] Chronic Diastolic Heart Failure (preserved EF) [ ] Acute on Chronic Diastolic Heart Failure (preserved EF) [ ] Acute Systolic & Diastolic Heart Failure [ ] Chronic Systolic & Diastolic Heart Failure [ ] Acute on Chronic Heart Failure Systolic & Diastolic Heart Failure [ ] Other, please specify [ ] Unable to determine (Template Last Revised: August 2020) MTDD
--- NOTE | 2024-09-27 18:58 | CDI ---
Documentation Clarification Form Date: 09/27/2024 06:51:11 PM From: Briseida Poe Phone: Admit Date: 09/17/2024 02:26:00 PM Patient Name: Ludy Blanc Visit Number: [id number] Discharge Date: 09/21/2024 10:51:00 AM ATTENTION: The Clinical Documentation Specialists (CDI) and [facility] Coding Staff appreciate your assistance in clarifying documentation. Please respond to the clarification below the line at the bottom and electronically sign. The CDI & [facility] Coding staff will review the response and follow-up if needed. Please note: Queries are made part of the Legal Health Record. If you have any questions, please contact the author of this message via ITS. Doctor/Provider: [facility] [place] ConflictingMyocardial infarctiontypes (VT) are documented. Additional clarification regarding the type ofMIis requested. Acute non ST elevation myocardial infarctionED Note, H P, Progress Note 09/[address] elevation myocardial infarctionProgress Note 09/18 History/Risk Factors: 68yo F, VSP,CHF,NSTEMIII,HTN, NIDDMII,asthma,smoker Clinical Indicators: Troponin: 09/17 0.233 09/18 0.238 EKGResults: interpreted by [facility] (Q wave V1 V2 V3.Inferior Q's. Nonspecific ST- T.), sinusrhythm, normal axis Treatment: Cardiology was talking to her about management and she became quite belligerent and refused their services. After that, they requested that she be sent to a tertiary hospital and this is arranged. She was set up to go to [facility] and transferred there on the . Please clarify the type of VT, if known: [ ] NSTEMI (type 1) [ ] Type II VT due to (please specify etiology) [ ] Unable to determine [ ] Other Condition, please specify (Template Last Revised: September 2020) MTDD
--- NOTE | 2024-09-28 20:27 | MISC ---
MISCELLANOUS REPORT Acute systolic heart failure and type 2 IN. MMODL / IJN: [id number] /
== END 2024-09-21 10:51 | disposition short-term general hospital (02) | DRG 280 ==
LOC: EC 11:24 → 3SCARD 14:26
PROVIDERS: ADMIT Family Medicine; ATTEND Family Medicine
DX: I25.3 Aneurysm of heart (principal); I50.21 Acute systolic (congestive) heart failure; I21.A1 Myocardial infarction type 2; I11.0 Hypertensive heart disease with heart failure; E11.9 Type 2 diabetes mellitus without complications; J45.909 Unspecified asthma, uncomplicated; Q21.0 Ventricular septal defect; I95.9 Hypotension, unspecified; F17.210 Nicotine dependence, cigarettes, uncomplicated; I25.10 Atherosclerotic heart disease of native coronary artery without angina pectoris; E78.5 Hyperlipidemia, unspecified; R01.1 Cardiac murmur, unspecified; Z91.148 Patient's other noncompliance with medication regimen for other reason; Z91.199 Patient's noncompliance with other medical treatment and regimen due to unspecified reason; Z79.84 Long term (current) use of oral hypoglycemic drugs; Z79.899 Other long term (current) drug therapy; I25.2 Old myocardial infarction; Z88.8 Allergy status to other drugs, medicaments and biological substances
CPT/HCPCS: 36415; 71046; 80053; 80061; 81001; 83605; 83735; 83880; 84484; 85025; 85049; 85610; 85730; 87636; 93005; 93306; 94640; 96361; 96365; 96366; 96375; 99291